=== PATIENT | male | born 1970 | race Caucasian/White ===

== ENCOUNTER 2021-01-30 04:07 | Emergency (ER) | payer SELFPAY ==
[~2021-01-30 04:07] MED LIST: AMLODIPINE10 MG PO; AMOXICILLIN500 M2 PO; ATENOLOL100 MG PO; CORTISPORIN SUS10 ML OT; HYDROCHLOROTHIA50 MG PO; LISINOPRIL40 MG PO; TRAMADOL HCL50 MG PO
[2021-01-30] MEDS ORDERED: CEPHALEXIN500 M1 PO (05:48)
== END 2021-01-30 06:05 | disposition home or self-care (01) ==
LOC: ED 04:07
DX: S01.112A Laceration without foreign body of left eyelid and periocular area, initial encounter (principal); Z79.2 Long term (current) use of antibiotics; Z79.899 Other long term (current) drug therapy; Y04.2XXA Assault by strike against or bumped into by another person, initial encounter; Y93.89 Activity, other specified; Y92.89 Other specified places as the place of occurrence of the external cause; Y99.8 Other external cause status

== ENCOUNTER → 2023-02-01 | Day surgery (SDC) | payer OTHER ==
[~2023-02-01] VITALS: Ht 182.8 cm; Wt 122.5 kg
[~2023-02-01] MED LIST changes: +CEPHALEXIN500 M1 PO
[2023-02-01 06:56] VITALS: BP 127/71
[2023-02-01 07:54] VITALS: BP 136/84
[2023-02-01 08:09] VITALS: BP 131/87
[2023-02-01 08:21] VITALS: BP 143/86
== END ==
LOC: SDC 01-29 08:00
PROVIDERS: ATTEND Surgery
DX: Z12.11 Encounter for screening for malignant neoplasm of colon (principal); K63.5 Polyp of colon; I10 Essential (primary) hypertension; F11.90 Opioid use, unspecified, uncomplicated